=== PATIENT | female | born 1995 | race Caucasian/White ===

== ENCOUNTER 2021-04-05 23:20 | Emergency (ER) | payer OTHER ==
[~2021-04-05] VITALS: Ht 147.3 cm; Wt 79.5 kg
[2021-04-05 23:23] VITALS: BP 138/89
[2021-04-06] MEDS ORDERED: LIDODERM 5% PATCH TD ONE ×2 (02:58→03:00)
[2021-04-06] MEDS ORDERED: KETOROLAC 30 MG/1 ML ONE (02:58)
[2021-04-06] MEDS ORDERED: KETOROLAC 30 MG/1 ML IM ONE (03:00)
== END 2021-04-06 03:59 | disposition home or self-care (01) ==
LOC: ED 23:54
DX: S16.1XXA Strain of muscle, fascia and tendon at neck level, initial encounter (principal); V49.09XA Driver injured in collision with other motor vehicles in nontraffic accident, initial encounter; Y93.89 Activity, other specified; Y92.410 Unspecified street and highway as the place of occurrence of the external cause; Y99.8 Other external cause status
CPT/HCPCS: 96372; 99283; J1885